=== PATIENT | male | born 1980 | race Caucasian/White ===

== ENCOUNTER 2019-09-15 07:02 | Day surgery (SDC) | payer OTHER ==
[~2019-09-15] VITALS: Ht 172.7 cm; Wt 97.5 kg
[2019-09-15 07:18] LABS: BASOPHILS 0.3 % (0-2); EOSINOPHILS 3.4 % (0-7); HEMATOCRIT 43.7 % (42.0-54.0); HEMOGLOBIN 15.4 g/dL (13.5-17.5); IMMATURE GRANULOCYTES 0.4 % (0-5); LYMPHOCYTES 13.1 % (15-50); MCH 31.4 pg (26.0-34.0); MCHC 35.2 g/dL (31.0-37.0); MCV 89.2 fL (80.0-100.0); MEAN PLATELET VOLUME 9.4 fL (7.4-10.4); MONOCYTES 5.2 % (2-11); NEUTROPHILS 77.6 % (40-80); PLATELET COUNT 306 10x3/uL (130-400); RDW 13.8 % (11.5-14.5)
[2019-09-15 07:26] LABS: ANION GAP 14.3 mmol/L (8-16); CALCIUM 8.8 mg/dL (8.5-10.1); CARBON DIOXIDE 29.5 mmol/L (21.0-32.0); CREATININE - SERUM 4.6 mg/dL (0.6-1.3)
[2019-09-15 07:27] LABS: PROTIME 13.2 SECONDS (11.6-15.0)
[2019-09-15 07:32] LABS: POTASSIUM - SERUM 2.8 mmol/L (3.5-5.1)
--- NOTE | 2019-09-15 07:36 | NUR ---
0732-RECEIVED CRITICAL LAB VIA PHONE BY HECTOR IN LAB. POTASSIUM 2.8. AT DESK AND NOTIFIED. CONTINUE WITH PROCEDURE PLANNED WITH NO NEW OREDERS.
[2019-09-15] MEDS ORDERED: TOPROL XL100 MG PO (09:50)
[2019-09-15] MEDS ORDERED: LIPITOR80 MG PO (09:51)
[2019-09-15] MEDS ORDERED: NORVASC10 MG PO (09:51)
[2019-09-15] MEDS ORDERED: LASIX40 MG (09:52)
[2019-09-15] MEDS ORDERED: SODIUM BICARBO325 MG PO (09:52)
[2019-09-15 09:59] VITALS: BP 165/112; Ht 172.7 cm; Wt 97.5 kg
[2019-09-15] MEDS ORDERED: ULTRAM50 MG PO (13:03)
--- NOTE | 2019-09-15 18:02 | NUR ---
1415 IV DC'D. CATHETER TIP INTACT. NO BLEEDING AT SITE. BANDAID APPLIED. DISCHARGE INSTRUCTIONS REVIEWED WITH PT AND HIS WHO BOTH VOICE UNDERSTANDING OF INSTRUCTIONS.
--- NOTE | 2019-09-19 20:50 | OP ---
PATIENT NAME: RAMÍREZ BALES MEDICAL RECORD: [id number] :78 LOCATION:[facility] ADMISSION DATE: SURGEON: ANA SOLORIO MD DATE OF OPERATION: 09/15/2019 REFERRED BY: Baljit Mckeon MD PREOPERATIVE NOTE: Mr. Bales is a 38-year-old white male patient who has been on chronic peritoneal dialysis, but has recovered renal function such that he is able to discontinue it. Recently, his transfer set actually broken in two and in order to keep a seal, he has been wearing a hemostat on the tubing. He is here today for me to remove his peritoneal dialysis catheter. DESCRIPTION OF PROCEDURE: Under general anesthesia with LMA per LOGISTICS MANAGER, the patient was prepped and draped in a sterile manner and an oblique incision was made at the catheter exit site in the left lower quadrant. The superficial cuff was quite close to the surface of the skin and there was some purulent exudate along the entry site. This was swabbed for cultures for aerobic and anaerobic organisms and Gram stain. The incision was deepened and extended medially following the catheter down to the site where it entered the rectus sheath. Hemostasis was obtained with electrocautery. The catheter was dissected from the rectus sheath. There was 1 small arterial bleeder, which required a couple of suture ligatures with 3-0 Vicryl. The deep Dacron cuff was freed and the entire catheter removed. The catheter accidentally fell to the floor and so it was not sent for culture. It was discarded. The anterior rectus fascial defect was then closed with a row of horizontal interrupted [id number] 0 Vicryl sutures. The wound was irrigated with Ancef/gentamicin solution and the wound closed with interrupted inverted subcuticular 3-0 Vicryl sutures and Dermabond glue. The incision was dressed with Maxorb Ag, Tegaderm, and Cavilon skin prep. The patient was awakened and in stable condition taken to the recovery room. He will be advised to use ice off and on to the operative area and he is to be given a prescription for tramadol to take 1 p.o. q.4 hours p.r.n. pain. He will resume activities and his usual medications and diet. Hopefully, he can be seen next week at the [facility] by the [facility] peritoneal dialysis nursing team for a wound check and thereby avoid having to drive back to [place] from [place] just to see me in my office; however, if he needs to be seen, he should call for an appointment and plan to come down. Blood loss during the operation was about 10 cc, none was replaced. Sponges, instruments, and needles were accounted for. No drain was used and no surgical specimen was submitted for histopathology. Swabs were submitted for culture and Gram stain. TRANSINT:[id number] Voice Confirmation ID: [id number] DOCUMENT ID: [id number] cc: [place] [facility] OPERATIVE REPORT [id number] RAMÍREZ BALES JAMES MD at 2050 CC: BALJIT MCKEON [id number] DICTATION DATE: 09/15/19 1343 NITROGLYCERIN SEPARATOR OPERATOR: 09/15/19 1409 [facility] 09/15/19 [facility] [address] [place] [address]
== END 2019-09-15 14:29 | disposition home or self-care (01) ==
LOC: D.OPS 07:02
PROVIDERS: ATTEND Internal Medicine Nephrology
DX: N18.4 Chronic kidney disease, stage 4 (severe) (principal)